=== PATIENT | male | born 1965 | race African-American/Black ===

== ENCOUNTER 2022-10-23 07:09 | Emergency (ER) | payer OTHER ==
[~2022-10-23] VITALS: Ht 170.2 cm; Wt 122.0 kg
[2022-10-23 07:14] VITALS: O2SAT 99
[2022-10-23] MEDS ORDERED: IBUPROFEN 600MG TABLET PO ONE (09:45)
[2022-10-23] MEDS ORDERED: NAPR-681 MT (11:11)
[2022-10-23] MEDS ORDERED: IBUPROFEN 600MG TABLET PO NR (11:30)
[2022-10-23] MEDS ORDERED: AMLODIPINE 10MG TABLET PO ONE (12:15)
[2022-10-23] MEDS ORDERED: CHLORTHALIDONE 25MG TABLET PO ONE (12:15)
[2022-10-23 14:05] VITALS: BP 232/121; PULSE 64; RESP 20; TEMP 98.1
== END 2022-10-23 14:10 | disposition home or self-care (01) ==
LOC: ER 07:09
DX: M17.12 Unilateral primary osteoarthritis, left knee (principal); I10 Essential (primary) hypertension
CPT/HCPCS: 29505; 73560; 99284